=== PATIENT | female | born 1965 | race Caucasian/White ===

== ENCOUNTER 2016-04-28 15:07 | Emergency (ER) | payer BC, MEDICAID ==
[2016-04-28 15:33] VITALS: BP 147/99; PULSE 96; RESP 16; TEMP 97.7; O2SAT 95
[2016-04-28] MEDS ORDERED: ESCITALOPRAM OXALATE 10 MG TAB PO ONE (15:44)
--- NOTE | 2016-04-28 15:46 | EDPHY ---
H & P Stated Complaint: Anxiety/Off Meds Time Seen by Provider: 04/28/16 15:31 HPI/ROS: CHIEF COMPLAINT: Anxiety, medication refill HISTORY OF PRESENT ILLNESS: The patient is a 51-year-old female with a history of anxiety who ran out of her trazodone and Lexapro 5 days ago. She is becoming overwhelming anxious. She also returned from the [facility] a few days ago where she had been treated for alcohol rehabilitation for 6 weeks. She is concerned without her medications she will relapse. She did slip a few days ago and had a couple glasses of wine. She denies any suicidality or homicidality. She denies hallucinations. She states that she has a therapist here in town that she feels comfortable with a can follow up with but that she does not currently have a prescriber. REVIEW OF SYSTEMS: Constitutional: denies: chills, fever, recent illness, recent injury EENTM: denies: blurred vision, double vision, nose congestion Respiratory: denies: cough, shortness of breath Cardiac: denies: chest pain, irregular heart rate, lightheadedness, palpitations Gastrointestinal/Abdominal: denies: abdominal pain, diarrhea, nausea, vomiting, blood streaked stools Genitourinary: denies: dysuria, frequency, hematuria, pain Musculoskeletal: denies: joint pain, muscle pain Skin: denies: lesions, rash, jaundice, bruising Neurological: denies: headache, numbness, paresthesia, tingling, dizziness, weakness Hematologic/Lymphatic: denies: blood clots, easy bleeding, easy bruising Immunologic/allergic: denies: HIV/AIDS, transplant EXAM: GENERAL: Well-appearing, well-nourished and in no acute distress. HEAD: Atraumatic, normocephalic. EYES: Pupils equal round and reactive to light, extraocular movements intact, sclera anicteric, conjunctiva are normal. ENT: TMs normal, nares patent, oropharynx clear without exudates. Moist mucous membranes. NECK: Normal range of motion, supple without lymphadenopathy or JVD. LUNGS: Breath sounds clear to auscultation bilaterally and equal. No wheezes rales or rhonchi. HEART: Regular rate and rhythm without murmurs, rubs or gallops. ABDOMEN: Soft, nontender, normoactive bowel sounds. No guarding, no rebound. No masses appreciated. BACK: No CVA tenderness, no spinal tenderness, step-offs or deformities EXTREMITIES: Normal range of motion, no pitting or edema. No clubbing or cyanosis. NEUROLOGICAL: Cranial nerves II through XII grossly intact. Normal speech, normal gait. 5/5 strength, normal movement in all extremities, normal sensation PSYCH: Tearful, anxious SKIN: Warm, dry, normal turgor, no visible rashes or lesions. Source: Patient Exam Limitations: No limitations - Personal History Current Tetanus/Diphtheria Vaccine: Yes Current Tetanus Diphtheria and Acellular Pertussis (TDAP): Yes - Medical/Surgical History Hx Asthma: Yes Hx Chronic Respiratory Disease: No Hx Diabetes: No Hx Cardiac Disease: No Hx Renal Disease: No Hx Cirrhosis: No Hx Alcoholism: No Hx HIV/AIDS: No Hx Splenectomy or Spleen Trauma: No Other PMH: Asthma, back surgery with titanium implants - Family History Significant Family History: No pertinent family hx - Social History Smoking Status: Never smoked Alcohol Use: Heavy Drug Use: None Constitutional: Initial Vital Signs Temperature (C) 36.5 C 04/28/16 15:31 Heart Rate 96 04/28/16 15:31 Respiratory Rate 16 04/28/16 15:31 Blood Pressure 147/99 H 04/28/16 15:31 O2 Sat (%) 95 04/28/16 15:31 O2 Delivery Mode Room Air Allergies/Adverse Reactions: morphine Allergy (Verified 01/12/16 20:58) Home Medications: Medication Instructions Recorded IBUPROFEN 01/12/16 Oxycodone HCl [Oxyir] 5 mg PO Q6 PRN #14 capsule 01/12/16 Escitalopram Oxalate [Lexapro] 10 mg PO DAILY #10 tab 04/28/16 traZODone [traZODone 150MG (*)] 150 mg PO HS #10 tab 04/28/16 Medical Decision Making ED Course/Re-evaluation: The patient is requesting medication refill. She states that she feels comfortable being discharged and following up with her primary therapist. She declines workup or testing at this time. She is not suicidal and is not on a hold. Will write her a short prescription and allow her to follow-up. I strongly discouraged alcohol. She agrees. Differential Diagnosis: Partial list of the Differential diagnosis considered include but were not limited to; anxiety, depression, medication refill and although unlikely based on the history and physical exam, I also considered reaction, psychosis, hallucinations. I discussed these differential diagnoses and the plan with the patient as well as the usual and expected course. The patient understands that the diagnosis is provisional and that in medicine we are not always correct and that further workup is often warranted. Usual and customary warnings were given. All of the patient's questions were answered. The patient was instructed to return to the emergency department should the symptoms at all worsen or return, otherwise to followup with the physician as we discussed. - Data Points Medications Given: Discontinued Medications Escitalopram Oxalate (Lexapro) 10 mg PO EDNOW ONE Stop: 04/28/16 15:45 Last Admin: 04/28/16 16:08 Dose: 10 mg Departure - Departure Disposition: Home, Routine, Self-Care Clinical Impression: Anxiety, Alcoholism Depression Qualifiers: Depression Type: major depressive disorder Major depression recurrence: recurrent Active/Remission status: currently active Major depression episode severity: moderate Qualified Code(s): F33.1 - Major depressive disorder, recurrent, moderate Condition: Good Instructions: Depression (ED), Anxiety (ED) Referrals: [facility] [Outside] - As per Instructions Prescriptions: Escitalopram Oxalate [Lexapro] 10 mg PO DAILY #10 tab traZODone [traZODone 150MG (*)] 150 mg PO HS #10 tab
== END 2016-04-28 16:09 | disposition home or self-care (01) ==
DX: F41.9 Anxiety disorder, unspecified (principal); F33.1 Major depressive disorder, recurrent, moderate; F10.20 Alcohol dependence, uncomplicated; J45.909 Unspecified asthma, uncomplicated